=== PATIENT | female | born 1960 | race Hispanic/Latino ===

== ENCOUNTER 2022-04-30 18:49 | Emergency (ER) | payer BC, OTHER ==
[~2022-04-30] VITALS: Ht 160 cm; Wt 68.0 kg
[2022-04-30] MEDS ORDERED: IBUP-2076 PO (21:18)
[2022-04-30 21:21] VITALS: BP 141/88
== END 2022-04-30 21:27 | disposition home or self-care (01) ==
LOC: EDBD 18:49 → EDH 18:49
DX: S01.01XA Laceration without foreign body of scalp, initial encounter (principal); M25.551 Pain in right hip; M25.571 Pain in right ankle and joints of right foot; E03.9 Hypothyroidism, unspecified; Z90.49 Acquired absence of other specified parts of digestive tract; W18.39XA Other fall on same level, initial encounter; Y93.89 Activity, other specified; Y92.009 Unspecified place in unspecified non-institutional (private) residence as the place of occurrence of the external cause; Y99.8 Other external cause status
CPT/HCPCS: 12002; 70450; 73502; 73552; 73590